=== PATIENT | male | born 1990 | race Caucasian/White ===

== ENCOUNTER 2024-07-20 10:25 | Emergency (ER) | payer OTHER, SELFPAY ==
[2024-07-20 10:29] VITALS: BP 135/74
[2024-07-20 10:30] VITALS: BP 135/74; PULSE 70; PULSE 71; RESP 18; TEMP 36.9; O2SAT 99; BMI 27.1
--- NOTE | 2024-07-20 10:47 | DI.CT.S_ITS ---
PROCEDURE: CT CERVICAL SPINE WO CON INDICATIONS: acute neck injury TECHNIQUE: Noncontrast 3 mm thick sections acquired from the skull base to the T4 level. Sagittal and coronal reformats were then constructed. For radiation dose reduction, the following was used: automated exposure control, adjustment of mA and/or kV according to patient size. COMPARISON: None. FINDINGS: Image quality: Excellent. Bones: No fractures or dislocations. Visualized superior ribs are intact. Soft tissues: Prevertebral soft tissues are normal in thickness. No paravertebral hematomas. No apical pneumothoraces. IMPRESSION: No displaced fracture or traumatic subluxation. Dictated by: Drake Jeff M.D. on 07/20/2024 at 11:36 Approved by: Drake Jeff M.D. on 07/20/2024 at 11:38
--- NOTE | 2024-07-20 10:47 | ED.NECK ---
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 No numbness or paresthesia but he was unable to get up off the ground. He was placed in a C-collar, to the severity of pain was given 100 mcg of fentanyl EN route and was brought in for further evaluation. He is awake and alert, is able to move all extremities with no sensory deficits. Significant pain and tenderness C5 and C6 level midline with slight increased tenderness to the right side Related Data Previous Rx's Medication Instructions Recorded oxycodone-acetaminophen 5 mg-325 1 tab PO Q6H PRN pain #14 tabs 07/20/24 mg tablet Allergies Allergy/AdvReac Type Severity Reaction Status Date / Time No Known Drug Allergies Allergy Verified 07/20/24 10:30 Review of Systems Review of Systems Narrative: Pertinent positive and negative findings as per HPI Patient History Social History Smoking Status: Unknown if ever smoked Smoking Status: Unknown if ever smoked alcohol intake frequency: a few times a month Substance Use Type: does not use Exam Initial Vital Signs Initial Vital Signs: Vital Signs Temperature 98.4 F 07/20/24 10:30 Pulse Rate 70 07/20/24 10:30 Respiratory Rate 18 07/20/24 10:30 Blood Pressure 135/74 07/20/24 10:30 Pulse Oximetry 99 07/20/24 10:30 Oxygen Delivery Method Room Air 07/20/24 10:30 General: Healthy appearing, in no acute distress. Able to give a complete and coherent history. Well-nourished well-developed HEENT: Moist mucous membranes, normal sclera with reactive pupils, Neck: C-collar in place. Gently removed with stabilization continuing, exquisite tenderness C5-C6 midline and to the right side. Respiratory: Lungs are clear to auscultation, no wheezing no rales no rhonchi. Full and symmetrical air movement Cardiac: Regular rate and rhythm no murmurs no bruits Skin: Warm and dry, no rashes Neurologic: Grossly neurologically intact with no obvious asymmetries or abnormalities. No obvious upper or lower extremity weakness or paresthesia Extremities: No trauma, well perfused Psych: Cooperative, appropriate insight and affect Course Orders Ordered: ED Orders 07/20/24 10:47 CT cervical spine wo con Stat Vital Signs Vital signs: Vital Signs - 8 hr 07/20/24 10:30 Temperature 98.4 F Pulse Rate 70 Respiratory Rate 18 Blood Pressure 135/74 Pulse Oximetry 99 Oxygen Delivery Method Room Air MDM - Neck Pain/Injury MDM Narrative Medical decision making narrative: CC: Inverted yoga position with acute pop and severe pain C5-6 unable to get off the floor Complicating co-morbidities: Otherwise healthy security incident response engineer Data collected from: patient Differential considered: Acute cervical spine fracture, disc abnormality, acute sprain/strain Exam documented above, pertinent findings include: Severe tenderness midline C5 and 6 Imaging studies independently reviewed: CT scan of the cervical spine is unremarkable Treatments: Soft collar is placed, Discussion: Acute neck strain during yoga. No neurologic or radicular findings otherwise. Cervical spine does not suggest significant fracture. We will place him in a soft collar. We talked about ibuprofen, Tylenol he will be given a brief course of Percocet recommended time off work until he is able to be appropriately physically active to fit criteria for his job Discharge Plan Departure Patient Disposition: Home Clinical Impression: Strain of neck muscle Qualifiers: Encounter type: initial encounter Qualified Code(s): S16.1XXA - Strain of muscle, fascia and tendon at neck level, initial encounter Instructions: DI for Neck Pain Activity Restrictions/Additional Instructions: Thank you for coming in today Fortunately, the yoga did not kill you nor break you. You do have an acute neck strain and it is going to hurt more over the next 48 hours. Using 400 mg of ibuprofen (2 [id number] pills) and 1 Tylenol every 6 hours can be very helpful in controlling pain. For severe pain you can use 400 mg of ibuprofen plus Percocet. Percocet is a narcotic and will cause constipation, please do take a stool softener Use the cervical collar as needed for pain control. You may find that ice for the 1st 2 days and then ice and heat alternating thereafter is helpful with pain control If you find that you are getting worse, have any numbness or tingling down your arms or anterior legs you do need to be re-evaluated I have filled out your L and I forms, you indicated you are not going back to work for approximately 10 days. I would recommend at least 5 days off work Prescriptions: New oxycodone-acetaminophen 5-325 mg tablet 1 tab PO Q6H PRN (Reason: pain) Qty: 14 0RF Stand Alone Forms: Patient Portal/API
[2024-07-20] MEDS: KETOROLAC 30 MG/ML VIAL 15 MG IV (10:58)
[2024-07-20] MEDS: HYDROMORPHONE 0.5 MG INJ IV (10:58)
[2024-07-20 11:00] VITALS: PULSE 67; O2SAT 96
[2024-07-20 11:30] VITALS: PULSE 63; O2SAT 98
--- NOTE | 2024-07-20 11:31 | PC.NURSE ---
Pt states he was doing yoga when he bent his legs over and behind his head when he felt a pop and hot feeling. Reports pain w/ neck movement. Pt able to move all extremities. No loss of bladder or bowl. Pt denies numbness or tingling. Respirations regular and unlabored.
[2024-07-20 12:17] VITALS: RESP 18
== END 2024-07-20 12:18 | disposition home or self-care (01) ==
PROVIDERS: Emergency Provider Emergency Medicine; Referring Provider Emergency Medicine
DX: S16.1XXA Strain of muscle, fascia and tendon at neck level, initial encounter (principal); X58.XXXA Exposure to other specified factors, initial encounter
CPT/HCPCS: 72125; 96374; 96375; 99284; J1170; J1885

== ENCOUNTER 2024-09-18 04:28 | Emergency (ER) | payer OTHER, SELFPAY ==
[2024-09-18 04:34] VITALS: BP 112/87; PULSE 100; RESP 18; TEMP 37.7; O2SAT 98; BMI 29.0
[2024-09-18 04:36] VITALS: PULSE 97; O2SAT 98
--- NOTE | 2024-09-18 04:37 | DI.RAD.S_ITS ---
PROCEDURE: XR CHEST 2V INDICATIONS: COUGH X 1.5MTHS, JORDEN SPUTUM TECHNIQUE: 2 views of the chest were acquired. COMPARISON: None. FINDINGS: Surgical changes and devices: None. Lungs and pleura: Possible patchy opacity obscuring the medial right heart border. No dense consolidation. Lungs otherwise clear. No pleural effusions or pneumothorax. Mediastinum: Mediastinal contours are normal. Heart size is normal. Bones and chest wall: No suspicious bony abnormalities. Soft tissues appear unremarkable. IMPRESSION: Possible early airspace opacity of the right middle lobe. Recommend follow up chest radiograph 4-6 weeks after treatment to document resolution of findings and/or return to baseline examination. No significant discrepancy with the shift stacker radiology preliminary report. Dictated by: Kevin Escobar M.D. on 09/18/2024 at 8:32 Approved by: Kevin Escobar M.D. on 09/18/2024 at 8:33
--- NOTE | 2024-09-18 04:40 | ED.URI ---
HPI - URI/Sore Throat General Chief Complaint: Upper Respiratory Symptoms Stated Complaint: coughing up red, throwing up, sob Time Seen by Provider: 09/18/24 04:31 Source: patient Mode of arrival: Ambulatory History of Present Illness HPI Narrative: 34-year-old male with no reported past medical history presents for cough for 1.5 months, today productive of red streaked, tali sputum. Patient states that he woke up in the middle of the night with chills, while in the shower he had a coughing fit and coughed up red and brown sputum. Patient states that he has been trying to ignore his cough for the last 1-1/2 months, but the color of his sputum tonight concerned him and caused him to come in for evaluation. She states that it is worse with exercise and when lying flat. No prior medical evaluation for this cough. Related Data Previous Rx's Medication Instructions Recorded oxycodone-acetaminophen 5 mg-325 1 tab PO Q6H PRN pain #14 tabs 07/20/24 mg tablet benzonatate 200 mg capsule 200 mg PO BID-TID PRN cough #60 09/18/24 caps doxycycline hyclate 100 mg tablet 100 mg PO BID #10 tabs 09/18/24 ondansetron 4 mg disintegrating 4 mg PO Q8H PRN nausea and 09/18/24 tablet vomiting #30 tabs Allergies Allergy/AdvReac Type Severity Reaction Status Date / Time No Known Drug Allergies Allergy Verified 07/20/24 10:30 Patient History Social History Smoking Status: Never smoker Smoking Status: Never smoker alcohol intake frequency: 0-2 drinks per day Substance Use Type: does not use Exam Initial Vital Signs Initial Vital Signs: Vital Signs Temperature 99.8 F H 09/18/24 04:34 Pulse Rate 100 H 09/18/24 04:34 Respiratory Rate 18 09/18/24 04:34 Blood Pressure 112/87 09/18/24 04:34 Pulse Oximetry 98 09/18/24 04:34 Oxygen Delivery Method Room Air 09/18/24 04:34 Const: Awake, alert, no acute distress, nontoxic appearing Cardiac: regular rate, regular rhythm RESP: unlabored, clear bilaterally, no wheezing Skin: Warm, Dry, intact, no rashes Neuro: AO x3, CN II-XII grossly intact, moves all extremities Course Orders Ordered: ED Orders 09/18/24 04:37 Chest [XR chest 2V] Stat 09/18/24 04:47 CBC Auto Diff [Complete Blood Count AUTO DIFF] Stat CMP [Comprehensive Metabolic Panel] Stat CRP [C-Reactive Protein Quant] Stat Erythrocyte Sedimentation Rate Stat Lactate (Lactic Acid) Stat Procalcitonin Stat Discontinued Medications Dexamethasone (Dexamethasone 10 Mg/Ml Vial) 10 mg PO NOW ONE Stop: 09/18/24 05:27 Last Admin: 09/18/24 05:38 Dose: 10 mg Documented By: LS Vital Signs Vital signs: Vital Signs - 8 hr 09/18/24 04:34 09/18/24 04:36 09/18/24 04:52 Temperature 99.8 F H Pulse Rate 100 H 97 H Respiratory Rate 18 Blood Pressure 112/87 121/68 Pulse Oximetry 98 98 Oxygen Delivery Method Room Air 09/18/24 04:52 09/18/24 05:00 09/18/24 05:00 Temperature Pulse Rate 94 H 94 H Respiratory Rate 20 Blood Pressure 122/70 Pulse Oximetry 96 95 Oxygen Delivery Method Room Air 09/18/24 05:30 09/18/24 05:30 09/18/24 05:45 Temperature 98.5 F Pulse Rate 82 Respiratory Rate Blood Pressure 127/61 Pulse Oximetry 94 Oxygen Delivery Method MDM - URI/Sore Throat Lab Data 09/18/24 04:47 09/18/24 04:47 Labs: Lab Results 09/18/24 Range/Units 04:47 WBC 14.4 H (4.5-11.0) X10^3/uL RBC 4.88 (4.5-5.9) X10^6/uL Hgb 14.1 (13.5-17.5) g/dL Hct 42.0 (41-53) % MCV 86.1 (80-100) fL MCH 28.9 (26-34) PG MCHC 33.5 (30-36) % RDW 12.8 (11.6-14.8) % Plt Count 332 (150-400) X10^3/uL Neut % (Auto) 86.1 H (50-75) % Lymph % (Auto) 6.1 L (25-40) % Churchill % (Auto) 6.5 (3-14) % Eos % (Auto) 0.8 L (2-4) % Baso % (Auto) 0.5 (0-2) % Neut # (Auto) 79463 H (4737-0997) /uL Lymph # (Auto) 900 L (3517-7182) /uL Churchill # (Auto) 900 (0-900) /uL Eos # (Auto) 100 (0-450) /uL Baso # (Auto) 100 (0-100) /uL ESR 8 (0-15) MM/HR Sodium 137 (137-145) mmol/L Potassium 3.9 (3.4-5.1) mmol/L Chloride 104 (98-107) mmol/L Carbon Dioxide 23 (22-32) mmol/L BUN 16 (9-20) mg/dL Creatinine 1.24 (0.66-1.25) mg/dL Estimated GFR > 60 (>60) mL/min BUN/Creatinine Ratio 12.9 (6-22) Glucose 105 H (70-100) mg/dL Lactate 1.2 (0.7-2.1) mmol/L Calcium 9.2 (8.4-10.2) mg/dL Total Bilirubin 0.7 (0.2-1.3) mg/dL AST 33 (17-59) IU/L ALT 24 (<50) IU/L Alkaline Phosphatase 70 (38-126) U/L C-Reactive Protein 2.3 H (<1.0) mg/dL Total Protein 7.6 (6.3-8.2) g/dL Albumin 4.5 (3.5-5.0) g/dL Globulin 3.1 (1.7-4.1) g/dL Albumin/Globulin Ratio 1.5 (1.0-2.8) Procalcitonin 0.067 (<0.5) ng/mL Imaging Data Chest x-ray: Radiologist's Impression: Preliminary review: Probable evolving right middle lobe infiltrate MDM Narrative Medical decision making narrative: nontoxic appearing patient with 1-1/2 months of cough, now with reddish/tali sputum. Saturating well on room air, patient has frequent nonproductive cough while providing history. Laboratory work, chest x-ray ordered. Laboratory work reviewed, WBC count 14.4, hemoglobin 14.1, platelet count 332, sodium 137, potassium 3.9, creatinine 1.24, liver enzymes within normal limits. Procalcitonin 0.067. Chest x-ray shows probable evolving right middle lobe infiltrate. Patient may have had superimposed bacterial infection on a pre-existing bronchitis. Patient has no known medical comorbidities and can be treated on an outpatient basis with oral medications. Patient informed of lab and imaging findings, plan to discharge patient with 5 days of doxycycline. Patient given Decadron for cough as well as prescription for Tessalon Perles. Zofran as needed sent to pharmacy of choice for nausea. ED return precautions discussed at bedside. Note for work provided. Discharge Plan Departure Patient Disposition: Home Clinical Impression: Right middle lobe pneumonia Instructions: DI for Pneumonia -- Adult Activity Restrictions/Additional Instructions: Your chest x-ray showed that you have a developing pneumonia in your right middle lobe. Your blood work is otherwise reassuring. Finish the doxycycline even if you notice improvement in your symptoms. Tessalon Perles can be taken for cough, otherwise you may use [id number] Robitussin. Zofran has been prescribed as needed for nausea or vomiting. Prescriptions: New doxycycline hyclate 100 mg tablet 100 mg PO BID Qty: 10 0RF ondansetron 4 mg tablet,disintegrating 4 mg PO Q8H PRN (Reason: nausea and vomiting) Qty: 30 0RF benzonatate 200 mg capsule 200 mg PO BID-TID PRN (Reason: cough) Qty: 60 0RF No Action oxycodone-acetaminophen 5-325 mg tablet 1 tab PO Q6H PRN (Reason: pain) Qty: 14 0RF Stand Alone Forms: Patient Portal/API/Survey, Work Release Note
[2024-09-18 04:50] LABS: Add Manual Diff / Slide Review NO; Basophils Absolute Auto 100 /uL (0-100); Basophils Percent Auto 0.5 % (0-2); Eosinophils Absolute Auto 100 /uL (0-450); Eosinophils Percent Auto 0.8 % (2-4); Hemoglobin 14.1 g/dL (13.5-17.5); Lymphocytes Absolute Auto 900 /uL (1100-4500); Lymphocytes Percent Auto 6.1 % (25-40); Mean Corpuscular HGB Conc 33.5 % (30-36); Mean Corpuscular Hemoglobin 28.9 PG (26-34); Mean Corpuscular Volume 86.1 fL (80-100); Monocytes Absolute Auto 900 /uL (0-900); Monocytes Percent Auto 6.5 % (3-14); Neutrophils Absolute Auto 12400 /uL (1500-7000); Neutrophils Percent Auto 86.1 % (50-75); Platelet Count 332 X10^3/uL (150-400); Red Blood Cell Count 4.88 X10^6/uL (4.5-5.9); Red Cell Distribution Width 12.8 % (11.6-14.8); White Blood Cell Count 14.4 X10^3/uL (4.5-11.0)
[2024-09-18 04:52] VITALS: BP 121/68; PULSE 94; O2SAT 96
[2024-09-18 05:00] VITALS: BP 122/70; PULSE 94; RESP 20; O2SAT 95
[2024-09-18 05:02] LABS: Lactate (Lactic Acid) 1.2 mmol/L (0.7-2.1)
[2024-09-18 05:04] LABS: Alanine Aminotransferase 24 IU/L (<50); Albumin 4.5 g/dL (3.5-5.0); Albumin Globulin Ratio 1.5 (1.0-2.8); Alkaline Phosphatase 70 U/L (38-126); Aspartate Aminotransferase 33 IU/L (17-59); BUN Creatinine Ratio 12.9 (6-22); Bilirubin Total 0.7 mg/dL (0.2-1.3); Blood Urea Nitrogen 16 mg/dL (9-20); C-Reactive Protein Quant 2.3 mg/dL (<1.0); Calcium 9.2 mg/dL (8.4-10.2); Carbon Dioxide 23 mmol/L (22-32); Chloride 104 mmol/L (98-107); Estimated Glomerular Filt Rate > 60 mL/min (>60); Globulin 3.1 g/dL (1.7-4.1); Glucose 105 mg/dL (70-100); HEMOLYSIS < 15 (0-50); Potassium 3.9 mmol/L (3.4-5.1); Sodium 137 mmol/L (137-145); Total Protein 7.6 g/dL (6.3-8.2)
[2024-09-18 05:18] LABS: Procalcitonin 0.067 ng/mL (<0.5)
[2024-09-18 05:30] VITALS: BP 127/61; PULSE 82; O2SAT 94
[2024-09-18] MEDS: DEXAMETHASONE 10 MG/ML VIAL PO (05:38)
[2024-09-18 05:45] VITALS: TEMP 36.9
[2024-09-18 06:50] LABS: Erythrocyte Sedimentation Rate 8 MM/HR (0-15)
== END 2024-09-18 05:45 | disposition home or self-care (01) ==
PROVIDERS: Emergency Provider Emergency Medicine
DX: J18.9 Pneumonia, unspecified organism (principal)
CPT/HCPCS: 36415; 71046; 80053; 83605; 84145; 85025; 85651; 86140; 99283; 99284; J1100